=== PATIENT | female | born 1965 | race Caucasian/White ===

== ENCOUNTER 2018-07-13 22:51 | Emergency (ER) | payer SELFPAY ==
[~2018-07-13] VITALS: Ht 165.1 cm; Wt 103.9 kg
[2018-07-13 22:58] VITALS: Ht 165.1 cm; Wt 103.9 kg
[2018-07-14 01:02] VITALS: BP 162/102
== END 2018-07-13 23:04 | disposition home or self-care (01) ==
LOC: ED 22:51
DX: S01.81XA Laceration without foreign body of other part of head, initial encounter (principal); E28.2 Polycystic ovarian syndrome; Z90.49 Acquired absence of other specified parts of digestive tract; X58.XXXA Exposure to other specified factors, initial encounter; Y93.89 Activity, other specified; Y92.89 Other specified places as the place of occurrence of the external cause; Y99.8 Other external cause status